=== PATIENT | female | born 1990 | race African-American/Black ===

== ENCOUNTER 2019-07-11 19:56 | Emergency (ER) | payer OTHER ==
[2019-07-11] MEDS ORDERED: SODIUM CHLORIDE 0.9% 1,000 ML IV STA (20:23)
[2019-07-11] MEDS ORDERED: ONDANSETRON 4 MG/2 ML VIAL IVP STA ×2 (20:23→22:20)
[2019-07-11] MEDS ORDERED: KETOROLAC 30 MG/ML 1 ML VIAL IVP STA (20:23)
[2019-07-11] MEDS ORDERED: diphenhydrAMINE 50 MG CAP PO STA (21:08)
[2019-07-11 21:15] LABS: Anisocytosis Slight; Basophils % (A) 1 %; Eosinophils % (A) 1 %; HCT 34.3 % (34.0-46.0); HGB 10.5 gm/dL (11.4-16.0); Hypochromasia Marked; Lymphocytes # (A) 0.5 k/uL (1.0-4.8); Lymphocytes % (A) 11 %; MCH 22.7 pg (25.0-35.0); MCHC 30.5 g/dL (31.0-37.0); MCV 74.4 fL (80.0-100.0); Mean Platelet Volume 6.2; Microcytosis Moderate; Monocytes # (A) 0.2 k/uL (0-1.0); Monocytes % (A) 3 %; Neutrophils # (A) 3.9 k/uL (1.3-7.7); Neutrophils % (A) 82 %; Platelet Count 328 k/uL (150-450); RBC 4.61 m/uL (3.80-5.40); RDW 19.3 % (11.5-15.5); WBC 4.7 k/uL (3.8-10.6)
[2019-07-11 21:34] LABS: ALT 17 U/L (9-52); AST 29 U/L (14-36); African American GFR (CKD) >90 (>60 ml/min/1.73 sqM); Albumin 4.9 g/dL (3.5-5.0); Alkaline Phosphatase 116 U/L (38-126); Amylase 94 U/L (30-110); Anion Gap 13 mmol/L; Blood Urea Nitrogen 7 mg/dL (7-17); Calcium 9.9 mg/dL (8.4-10.2); Carbon Dioxide 21 mmol/L (22-30); Chloride 107 mmol/L (98-107); Glucose 130 mg/dL (74-99); Sodium 141 mmol/L (137-145); Total Bilirubin 0.4 mg/dL (0.2-1.3)
[2019-07-11 21:51] VITALS: RESP 18
--- NOTE | 2019-07-11 21:55 | XR ---
EXAMINATION TYPE: XR KUB DATE OF EXAM: 07/11/2019 COMPARISON: NONE HISTORY: Abdominal pain and vomiting TECHNIQUE: Single view FINDINGS: Bowel gas pattern is normal. There is no sign of intestinal obstruction or pneumoperitoneum . Fecal pattern is normal. Lung bases are clear. There are no pathologic calcifications. IMPRESSION: Nonacute abdomen.
[2019-07-11 22:05] LABS: Amorphous Sediment,Urine Rare /hpf; Appearance,Urine Cloudy (Clear); Bacteria,Urine Rare /hpf; Bilirubin,Urine Negative (Negative); Blood,Urine Small (Negative); Color,Urine Yellow; Glucose,Urine (UA) Negative (Negative); Ketones,Urine 3+ (Negative); Leukocyte Esterase,Urine Negative (Negative); Mucus,Urine Occasional /hpf; Nitrite,Urine Negative (Negative); Protein,Urine 1+ (Negative); RBC,Urine 8 /hpf (0-5); Specific Gravity,Urine 1.018 (1.001-1.035); Squamous Epithelial Cell,Urine 5 /hpf (0-4); Urobilinogen,Urine <2.0 mg/dL (<2.0); WBC,Urine 1 /hpf (0-5)
[2019-07-11] MEDS ORDERED: HYDROmorphone 0.5 MG/0.5 ML SYRINGE IVP STA (22:19)
[2019-07-11] MEDS ORDERED: PROMETHAZINE INJ 25 MG in SODIUM CHLORIDE 0.9% 50 ML IVPB ONE (23:00)
[2019-07-11] MEDS ORDERED: diphenhydrAMINE 50 MG/ML 1 ML VIAL IVP STA (23:12)
[2019-07-11] MEDS ORDERED: HYDROmorphone 1 MG/ML 1 ML SYRINGE IVP STA (23:31)
--- NOTE | 2019-07-11 23:49 | ED ---
Abdominal Pain HPI - General Chief Complaint: Abdominal Pain Stated Complaint: abdominal pain Time Seen by Provider: 07/11/19 20:04 Source: patient Mode of arrival: EMS Limitations: no limitations - History of Present Illness Initial Comments: 29-year-old female patient coming from [facility] presents to the emergency department for evaluation of left flank pain. Patient states that she has been having symptoms since this morning. Patient states she has been nauseated and has vomited several times. States she has had chills but no fever. Denies any known hematuria, dysuria, urinary frequency, urinary urgency. Patient states she does have history of kidney stones this does feel similar. States she is also having pain in the abdomen. She denies any recent travel or sick contacts. She is currently being treated for alcohol intoxication. 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 Mary Kay verde denies any recent rash, shortness breath, chest pain, diarrhea, constipation, numbness, tingling, dizziness, weakness, headache, visual changes, or any other complaints. - Related Data Home Medications Medication Instructions Recorded Confirmed Acetaminophen [Tylenol 8 Hour] 650 mg PO Q4H PRN 07/11/19 07/11/19 Chlorpheniramine Maleate 4 mg PO Q4HR PRN 07/11/19 07/11/19 [Chlor-Trimeton] Hyoscyamine Sulfate [Levsin] 0.125 mg PO Q6H PRN 07/11/19 07/11/19 Ibuprofen [Motrin] 600 mg PO Q6H PRN 07/11/19 07/11/19 Multivitamins, Thera [Multivitamin 1 tab PO DAILY 07/11/19 07/11/19 (formulary)] Mylanta 30 ml PO Q4H PRN 07/11/19 07/11/19 Ondansetron HCl [Zofran] 8 mg PO Q6H PRN 07/11/19 07/11/19 Ondansetron [Zofran] 4 mg IM Q6H PRN 07/11/19 07/11/19 Pantoprazole [Protonix] 40 mg PO DAILY 07/11/19 07/11/19 Sucralfate [Carafate] 1 gm PO ACHS 07/11/19 07/11/19 Thiamine [Vitamin B-1] 100 mg PO DAILY 07/11/19 07/11/19 Tigan 300mg Supp 300 mg RECTAL Q6H PRN 07/11/19 07/11/19 Trimethobenzamide [Tigan] 300 mg PO Q6H PRN 07/11/19 07/11/19 busPIRone HCl [Buspar] 10 mg PO TID PRN 07/11/19 07/11/19 traZODone HCL [Desyrel] 50 - 150 mg PO HS 07/11/19 07/11/19 Allergies Allergy/AdvReac Type Severity Reaction Status Date / Time No Known Allergies Allergy Verified 07/11/19 20:44 Review of Systems ROS Statement: Those systems with pertinent positive or pertinent negative responses have been documented in the HPI. ROS Other: All systems not noted in ROS Statement are negative. Past Medical History Additional Past Medical History / Comment(s): kidney stones History of Any Multi-Drug Resistant Organisms: None Reported Past Surgical History: Section Additional Past Surgical History / Comment(s): kidney stents Past Psychological History: Anxiety, Bipolar, Depression Smoking Status: Current every day smoker Past Alcohol Use History: Rare Past Drug Use History: Marijuana General Exam Limitations: no limitations General appearance: alert, in no apparent distress, other (Physical well- developed, well-nourished adult female patient in mild distress related to pain. Vital signs upon presentation are temperature 98.9F, pulse 102, blood pressure 159/109. respirations 22, pulse ox 100% on room air.) ENT exam: Present: normal exam, normal oropharynx, mucous membranes moist Respiratory exam: Present: normal lung sounds bilaterally. Absent: respiratory distress, wheezes, rales, rhonchi, stridor Cardiovascular Exam: Present: regular rate, normal rhythm, normal heart sounds. Absent: systolic murmur, diastolic murmur, rubs, gallop, clicks GI/Abdominal exam: Present: soft, tenderness (Left-sided), normal bowel sounds. Absent: distended, guarding, rebound, rigid Back exam: Present: normal inspection, CVA tenderness (L). Absent: CVA tenderness (R) Neurological exam: Present: alert, oriented X3, CN II-XII intact Psychiatric exam: Present: normal affect, normal mood Skin exam: Present: warm, dry, intact, normal color. Absent: rash Course Vital Signs 07/11/19 07/11/19 19:59 21:49 Temperature 98.9 F Pulse Rate 102 H 88 Respiratory 22 18 Rate Blood Pressure 159/109 O2 Sat by Pulse 100 100 Oximetry Medical Decision Making - Medical Decision Making 29-year-old female patient presents the emergency department today for evaluation of left-sided flank pain, nausea, and vomiting. Physical examination did reveal upper abdominal tenderness and left flank tenderness. Labs reviewed and are relatively unremarkable. Urinalysis showed a cloudy appearance with 1+ protein, 3+ ketones, small amount of blood, 8 red blood cells, 5 squamous epithelial cells, rare amorphous sediment, rare bacteria, and occasional mucous. Lab findings not clearly related to kidney stones of CT abdomen and pelvis without contrast was obtained. he stone was noted. no other abnormalities were noted. 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 She is instructed to follow-up with her primary care physician for recheck in 1-2 days. She has several nausea medications as taken home, she is urged to continue these. Return parameters were discussed in detail. She verbalizes understanding and agrees with this plan. - Lab Data Result diagrams: 07/11/19 21:00 07/11/19 21:00 Lab Results 07/11/19 07/11/19 07/11/19 Range/Units 21:00 21:00 21:15 WBC 4.7 (3.8-10.6) k/uL RBC 4.61 (3.80-5.40) m/uL Hgb 10.5 L (11.4-16.0) gm/dL Hct 34.3 (34.0-46.0) % MCV 74.4 L (80.0-100.0) fL MCH 22.7 L (25.0-35.0) pg MCHC 30.5 L (31.0-37.0) g/dL RDW 19.3 H (11.5-15.5) % Plt Count 328 (150-450) k/uL Neutrophils % 82 % Lymphocytes % 11 % Monocytes % 3 % Eosinophils % 1 % Basophils % 1 % Neutrophils # 3.9 (1.3-7.7) k/uL Lymphocytes # 0.5 L (1.0-4.8) k/uL Monocytes # 0.2 (0-1.0) k/uL Eosinophils # 0.0 (0-0.7) k/uL Basophils # 0.0 (0-0.2) k/uL Hypochromasia Marked Anisocytosis Slight Microcytosis Moderate Sodium 141 (137-145) mmol/L Potassium 4.0 (3.5-5.1) mmol/L Chloride 107 (98-107) mmol/L Carbon Dioxide 21 L (22-30) mmol/L Anion Gap 13 mmol/L BUN 7 (7-17) mg/dL Creatinine 0.51 L (0.52-1.04) mg/dL Est GFR (CKD-EPI)AfAm >90 (>60 ml/min/1.73 sqM) Est GFR (CKD-EPI)NonAf >90 (>60 ml/min/1.73 sqM) Glucose 130 H (74-99) mg/dL Calcium 9.9 (8.4-10.2) mg/dL Total Bilirubin 0.4 (0.2-1.3) mg/dL AST 29 (14-36) U/L ALT 17 (9-52) U/L Alkaline Phosphatase 116 (38-126) U/L Total Protein 9.0 H (6.3-8.2) g/dL Albumin 4.9 (3.5-5.0) g/dL Amylase 94 (30-110) U/L Lipase 55 (23-300) U/L Urine Color Yellow Urine Appearance Cloudy H (Clear) Urine pH 7.0 (5.0-8.0) Ur Specific [place] 1.018 (1.001-1.035) Urine Protein 1+ H (Negative) Urine Glucose (UA) Negative (Negative) Urine Ketones 3+ H (Negative) Urine Blood Small H (Negative) Urine Nitrite Negative (Negative) Urine Bilirubin Negative (Negative) Urine Urobilinogen <2.0 (<2.0) mg/dL Ur Leukocyte Esterase Negative (Negative) Urine RBC 8 H (0-5) /hpf Urine WBC 1 (0-5) /hpf Ur Squamous Epith Cells 5 H (0-4) /hpf Amorphous Sediment Rare H (None) /hpf Urine Bacteria Rare H (None) /hpf Urine Mucus Occasional H (None) /hpf - Radiology Data Radiology results: report reviewed, image reviewed KUB x-ray of the abdomen is obtained. Report was reviewed in its entirety. Impression by Dr. Rogers shows nonacute abdomen. CT abdomen and pelvis without contrast is obtained. Report was reviewed in its entirety. Impression by shows no nephrolithiasis or hydronephrosis. Findings suggestive of medullary nephrocalcinosis. Disposition Clinical Impression: Flank pain Disposition: HOME SELF-CARE Condition: Good Instructions (If sedation given, give patient instructions): Abdominal Pain (ED), Flank Pain (ED) Additional Instructions: Take, Motrin for pain control. Follow-up through primary care physician for recheck in 1-2 days. Return to the emergency department immediately for any new, worsening, or concerning symptoms. Is patient prescribed a controlled substance at d/c from ED?: No Referrals: None,Stated [Primary Care Provider] - 1-2 days Time of Disposition: 00:05
--- NOTE | 2019-07-11 23:55 | CT ---
EXAM: CT Abdomen and Pelvis Without Intravenous Contrast CLINICAL HISTORY: ITS.REASON CT Reason: Pain TECHNIQUE: Axial computed tomography images of the abdomen and pelvis without intravenous contrast. CTDI is 6 mGy and DLP is 310 mGy-cm. This CT exam was performed using one or more of the following dose reduction techniques: automated exposure control, adjustment of the mA and/or kV according to patient size, and/or use of iterative reconstruction technique. COMPARISON: No relevant prior studies available. FINDINGS: Lung bases: Unremarkable. No mass. No consolidation. ABDOMEN: Liver: Unremarkable. Gallbladder and bile ducts: Unremarkable. No calcified stones. No ductal dilation. Pancreas: Unremarkable. No ductal dilation. Spleen: Unremarkable. No splenomegaly. Adrenals: Unremarkable. No mass. Kidneys and ureters: Dense medullary pyramids bilaterally. No obstructing stones. No hydronephrosis. Stomach and bowel: Unremarkable. No obstruction. No mucosal thickening. PELVIS: Appendix: No findings to suggest acute appendicitis. Bladder: Unremarkable. No stones. Reproductive: Unremarkable as visualized. ABDOMEN and PELVIS: Intraperitoneal space: Unremarkable. No free air. No significant fluid collection. Bones/joints: No acute fracture. No dislocation. Soft tissues: Unremarkable. Vasculature: Unremarkable. No abdominal aortic aneurysm. Lymph nodes: Unremarkable. No enlarged lymph nodes. IMPRESSION: No nephrolithiasis or hydronephrosis. Findings suggestive of medullary nephrocalcinosis.
[2019-07-12] MEDS ORDERED: ZOLPIDEM 5 MG TAB PO ONE (00:30)
[2019-07-12 01:33] VITALS: BP 123/84; PULSE 100; TEMP 98.5
== END 2019-07-12 01:15 | disposition home or self-care (01) ==
LOC: EC 19:56
DX: R10.9 Unspecified abdominal pain (principal); R11.2 Nausea with vomiting, unspecified; R68.83 Chills (without fever); R10.812 Left upper quadrant abdominal tenderness; F41.9 Anxiety disorder, unspecified; F31.9 Bipolar disorder, unspecified; F17.200 Nicotine dependence, unspecified, uncomplicated; Z79.899 Other long term (current) drug therapy; Z87.442 Personal history of urinary calculi
CPT/HCPCS: 99284; 96374; 96375 ×2; 96376; 36415; 80053; 82150; 83690; 85025; 81001; 74018; 74176; 96361; J2405; J1885; J1170

== ENCOUNTER 2019-07-12 02:40 | Emergency (ER) | payer OTHER ==
[2019-07-12 02:48] VITALS: BP 124/81; TEMP 97.9
[2019-07-12] MEDS ORDERED: LORazepam 2 MG/ML INJ IM STA (03:00)
--- NOTE | 2019-07-12 03:04 | ED ---
Anxiety HPI - General Chief Complaint: Anxiety Stated Complaint: ANXIETY Time Seen by Provider: 07/12/19 02:58 Source: patient Mode of arrival: ambulatory - History of Present Illness Initial Comments: 29-year-old female patient presents to the emergency department today for evaluation of acute anxiety attack. Patient was waiting for ride in the waiting room of the emergency department when an unresponsive child was brought in. Patient states that she lost her 2 year old son August 22 of last year. This triggered her anxiety and panic. Patient is requesting medication for anxiety. States she generally takes Ativan or Xanax. Patient denies any chest pain or shortness of breath. States she just feels shaky and panicked. Patient denies any recent rash, fever, chills, abdominal pain, nausea, vomiting, diarrhea, constipation, back pain, numbness, tingling, dizziness, weakness, headache, visual changes, or any other complaints. - Related Data Home Medications: Home Medications Medication Instructions Recorded Confirmed Acetaminophen [Tylenol 8 Hour] 650 mg PO Q4H PRN 07/11/19 07/11/19 Chlorpheniramine Maleate 4 mg PO Q4HR PRN 07/11/19 07/11/19 [Chlor-Trimeton] Hyoscyamine Sulfate [Levsin] 0.125 mg PO Q6H PRN 07/11/19 07/11/19 Ibuprofen [Motrin] 600 mg PO Q6H PRN 07/11/19 07/11/19 Multivitamins, Thera [Multivitamin 1 tab PO DAILY 07/11/19 07/11/19 (formulary)] Mylanta 30 ml PO Q4H PRN 07/11/19 07/11/19 Ondansetron HCl [Zofran] 8 mg PO Q6H PRN 07/11/19 07/11/19 Ondansetron [Zofran] 4 mg IM Q6H PRN 07/11/19 07/11/19 Pantoprazole [Protonix] 40 mg PO DAILY 07/11/19 07/11/19 Sucralfate [Carafate] 1 gm PO ACHS 07/11/19 07/11/19 Thiamine [Vitamin B-1] 100 mg PO DAILY 07/11/19 07/11/19 Tigan 300mg Supp 300 mg RECTAL Q6H PRN 07/11/19 07/11/19 Trimethobenzamide [Tigan] 300 mg PO Q6H PRN 07/11/19 07/11/19 busPIRone HCl [Buspar] 10 mg PO TID PRN 07/11/19 07/11/19 traZODone HCL [Desyrel] 50 - 150 mg PO HS 07/11/19 07/11/19 Allergies/Adverse Reactions: Allergies Allergy/AdvReac Type Severity Reaction Status Date / Time No Known Allergies Allergy Verified 07/11/19 20:44 Review of Systems ROS Statement: Those systems with pertinent positive or pertinent negative responses have been documented in the HPI. ROS Other: All systems not noted in ROS Statement are negative. Past Medical History Additional Past Medical History / Comment(s): kidney stones History of Any Multi-Drug Resistant Organisms: None Reported Past Surgical History: Section Additional Past Surgical History / Comment(s): kidney stents Past Psychological History: Anxiety, Bipolar, Depression Smoking Status: Current every day smoker Past Alcohol Use History: Rare Past Drug Use History: Marijuana General Exam Limitations: no limitations General appearance: alert, in no apparent distress, anxious, other (Physical well-developed, well-nourished adult female patient in no acute distress. Vital signs upon presentation are temperature 97.9F, pulse 120, respirations 20, blood pressure 124/81, pulse ox 99% on room air.) Eye exam: Present: normal appearance, PERRL, EOMI. Absent: scleral icterus, conjunctival injection, periorbital swelling ENT exam: Present: normal exam, normal oropharynx, mucous membranes moist Respiratory exam: Present: normal lung sounds bilaterally. Absent: respiratory distress, wheezes, rales, rhonchi, stridor Cardiovascular Exam: Present: normal rhythm, tachycardia, normal heart sounds. Absent: systolic murmur, diastolic murmur, rubs, gallop, clicks Neurological exam: Present: alert, oriented X3, CN II-XII intact Psychiatric exam: Present: anxious, other (Tearful) Skin exam: Present: warm, dry, intact, normal color. Absent: rash Course Vital Signs 07/12/19 02:44 Temperature 97.9 F Pulse Rate 120 H Respiratory 20 Rate Blood Pressure 124/81 O2 Sat by Pulse 99 Oximetry Medical Decision Making - Medical Decision Making 29-year-old female patient percents to the emergency department today for evaluation of anxiety attack. She is requesting anxiety medication. Patient was given a dose of medication here in the emergency department. She is requesting discharge. She does have a ride home. Return parameters were discussed in detail. She is instructed to follow-up with her primary care physician for recheck in 1-2 days. She verbalizes understanding and agrees with this plan. Disposition Clinical Impression: Anxiety Disposition: HOME SELF-CARE Condition: Good Instructions (If sedation given, give patient instructions): Generalized Anxiety Disorder (ED) Additional Instructions: Follow up with your primary care physician for recheck in 1-2 days. Return to the emergency department for any new, worsening, or concerning symptoms. Is patient prescribed a controlled substance at d/c from ED?: No Referrals: None,Stated [Primary Care Provider] - 1-2 days Time of Disposition: 03:15
[2019-07-12 03:30] VITALS: PULSE 100; RESP 18
== END 2019-07-12 03:26 | disposition home or self-care (01) ==
LOC: EC 02:40
DX: F41.9 Anxiety disorder, unspecified (principal); F32.9 Major depressive disorder, single episode, unspecified; Z79.899 Other long term (current) drug therapy
CPT/HCPCS: 99283; 96372; J2060